=== PATIENT | male | born 1975 | race Caucasian/White ===

== ENCOUNTER → 2019-07-11 | Outpatient (CLI) | payer OTHER ==
--- NOTE | 2019-07-11 15:04 | RAD ---
PROCEDURE: SHOULDER 2+V RIGHT STUDY DATE: 07/11/2019 CLINICAL INDICATION / HISTORY: Right shoulder pain. TECHNIQUE: AP internal rotation, scapula Y and axillary views of the right shoulder were obtained. COMPARISON: None FINDINGS: No fracture, dislocation or bone destruction is identified. There are moderate degenerative changes at the right AC joint. An os acromiale is present. No calcifications are seen in relation to the rotator cuff insertion. 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 This can be evaluated in greater detail on MRI as clinically warranted. Electronically signed by: Carla Mujica MD (07/11/2019 3:01 PM) [id number]
== END | disposition home or self-care (01) ==
LOC: RAD 14:37
PROVIDERS: ATTEND Orthopaedic Surgery
DX: M19.011 Primary osteoarthritis, right shoulder (principal)
CPT/HCPCS: 73030

== ENCOUNTER → 2019-09-03 | Outpatient (CLI) | payer OTHER ==
--- NOTE | 2019-09-03 16:34 | RAD ---
EXAM: Right shoulder, 2 views. HISTORY: Arthroplasty. COMPARISON: None. FINDINGS: 2 views of the right shoulder obtained. There is a right shoulder arthroplasty in expected vision. There are skin zara due to recent surgery. IMPRESSION: Right shoulder arthroplasty in expected position. Electronically signed by: Emerita Leal MD (09/03/2019 4:31 PM) [id number]
== END ==
LOC: DXRAD 15:53
PROVIDERS: ATTEND Orthopaedic Surgery
DX: Z96.611 Presence of right artificial shoulder joint (principal)
CPT/HCPCS: 73030

== ENCOUNTER → 2019-10-08 | Outpatient (CLI) | payer OTHER ==
--- NOTE | 2019-10-08 13:21 | RAD ---
Right shoulder 2 views INDICATION: 6 weeks status post total replacement of right shoulder COMPARISON: 09/03/2019 and 07/11/2019 right shoulder x-rays. FINDINGS: Grashey and scapular Y views of the right shoulder show mild reverse humeral arthroplasty in satisfactory alignment. The skin zara overlying the surgical incision have been removed. Soft tissues unremarkable. IMPRESSION: Satisfactory alignment of the right shoulder status post right total arthroplasty. Electronically signed by: Carla Mujica MD (10/08/2019 1:18 PM) [id number]
== END | disposition home or self-care (01) ==
LOC: DXRAD 11:02
PROVIDERS: ATTEND Orthopaedic Surgery
DX: Z96.611 Presence of right artificial shoulder joint (principal)
CPT/HCPCS: 73030

== ENCOUNTER → 2019-11-16 | Outpatient (CLI) | payer OTHER ==
--- NOTE | 2019-11-16 14:45 | RAD ---
EXAM: Right shoulder, 2 views. HISTORY: Pain. COMPARISON: None. FINDINGS: 2 views of the right shoulder are obtained. There is a right shoulder arthroplasty in expected position. There is no acute fracture, dislocation or subluxation. IMPRESSION: Right shoulder arthroplasty in expected position. Electronically signed by: Emerita Leal MD (11/16/2019 2:42 PM) [id number]
== END | disposition home or self-care (01) ==
LOC: DXRAD 14:08
PROVIDERS: ATTEND Orthopaedic Surgery
DX: M25.511 Pain in right shoulder (principal); Z96.611 Presence of right artificial shoulder joint
CPT/HCPCS: 73030